=== PATIENT | male | born 1935 | race Two or more races ===

== ENCOUNTER 2020-09-12 13:24 | Inpatient (IN) | payer MEDICARE, OTHER ==
[2020-09-12] MEDS ORDERED: Sodium Chloride 0.9% 10 ML Syringe FLUSH PRN ×2 (13:44→14:27)
--- NOTE | 2020-09-12 14:25 | EDM.PDOC ---
ED HPI GENERAL MEDICAL PROBLEM - General Chief Complaint: Respiratory Problem Stated Complaint: DIFFICULTY BREATHING Time Seen by Provider: 09/12/20 13:42 Source of Information: Reports: Patient, RN Notes Reviewed History Limitations: Reports: No Limitations - History of Present Illness INITIAL COMMENTS - FREE TEXT/NARRATIVE: Patient is an 84-year-old male who presents to the ER with his family members for the evaluation of his difficulty breathing. Patient states that this has been going on for roughly 1 month, but seems to have worsened over the last week. He recently flew up to see his son, from [place]. His shortness of breath seems to worsen, when it is hotter outside, or when it is raining. It seems to get better when it is cooler. He has been having issues where he is coughing up some thick sputum, that is whitish in color. He notes that he did have COVID-19 4 to 5 months ago. He has not had any chest pain, nausea/vomiting, fevers or chills. O2 sats when he arrived here were 83% on room air, nursing staff did put him on oxygen, and he did improve to 95% on 5 L nasal cannula. Patient seems to be short of breath at rest, and it does worsen quite a bit even when he walks short distances. Patient does not take any regular medications, and denies any past medical history. - Related Data Allergies Allergy/AdvReac Type Severity Reaction Status Date / Time No Known Allergies Allergy Verified 09/12/20 13:35 Home Meds: Home Meds . [No Known Home Meds] 09/12/20 [History] Past Medical History Respiratory History: Reports: SOB - Infectious Disease History Infectious Disease History: Reports: Novel Coronavirus (05/02 or 06/02) - Past Surgical History Musculoskeletal Surgical History: Reports: Arthroscopic Knee, Other (See Below) Other Musculoskeletal Surgeries/Procedures:: Foot, knee and hip surgeries Social & Family History - Tobacco Use Tobacco Use Status *Q: Never Tobacco User - Caffeine Use Caffeine Use: Reports: None - Recreational Drug Use Recreational Drug Use: No ED ROS GENERAL - Review of Systems Review Of Systems: Comprehensive ROS is negative, except as noted in HPI. ED EXAM, GENERAL - Physical Exam Exam: See Below Exam Limited By: No Limitations General Appearance: Alert, WD/WN, No Apparent Distress Respiratory/Chest: No Respiratory Distress, Lungs Clear, Normal Breath Sounds, No Accessory Muscle Use, Chest Non-Tender Cardiovascular: Normal Peripheral Pulses, Regular Rate, Rhythm, No Edema Peripheral Pulses: 2+: Radial (L), Radial (R) GI/Abdominal: Normal Bowel Sounds, Soft, Non-Tender, No Distention, No Mass Extremities: Normal Inspection, Normal Capillary Refill Neurological: Alert, Oriented, Normal Cognition, No Motor/Sensory Deficits Psychiatric: Normal Affect, Normal Mood Skin Exam: Warm, Dry, Intact, Normal Color, No Rash #1 Interpretation EKG Date: 09/12/20 Time: 13:33 Rhythm: NSR Rate (Beats/Min): 84 [place]: Normal P-Wave: Present QRS: Normal ST-T: Normal QT: Normal Comparison: NA - No Prior EKG EKG Interpretation Comments: No obvious ischemia or acute ST changes noted, reviewed by myself and Dr. Ng. Course - Vital Signs Last Recorded V/S: Last Vital Signs Temp 97.1 F 09/12/20 13:33 Pulse 85 09/12/20 13:33 Resp 24 H 09/12/20 13:33 BP 137/80 09/12/20 13:33 Pulse Ox 95 09/12/20 14:27 - Orders/Labs/Meds Orders: Active Orders 24 hr Category Date Time Status EKG Documentation Completion [RC] STAT Care 09/12/20 13:42 Ordered Oxygen Therapy, ED [RC] ASDIRECTED Care 09/12/20 14:19 Ordered Peripheral IV Care [RC] . DIRECTED Care 09/12/20 13:44 Ordered REFLEX LACTIC ACID YES OR NO [CHEM] Routine Lab 09/12/20 14:26 Received Sodium Chloride 0.9% [Normal Saline] 1,000 ml Med 09/12/20 14:28 Ordered IV ONETIME Sodium Chloride 0.9% [Normal Saline] 100 ml Med 09/12/20 14:30 Active IV ASDIRECTED Sodium Chloride 0.9% [Saline Flush] Med 09/12/20 13:44 Ordered 10 ml FLUSH ASDIRECTED PRN Sodium Chloride 0.9% [Saline Flush] Med 09/12/20 14:27 Active 10 ml FLUSH ONETIME PRN Peripheral IV Insertion Adult [OM.PC] Routine Oth 09/12/20 13:44 Ordered EKG 12 Lead [EK] Stat Ther 09/12/20 13:33 Ordered Medication Orders Sodium Chloride (Normal Saline) 100 mls @ 75 mls/hr IV ASDIRECTED HERMILA Last Admin: 09/12/20 14:37 Dose: 75 mls/hr Documented by: NUNU Sodium Chloride (Normal Saline) 1,000 mls @ 500 mls/hr IV ONETIME ONE Stop: 09/12/20 16:27 Last Admin: 09/12/20 14:45 Dose: 500 mls/hr Documented by: LUIGI Sodium Chloride (Sodium Chloride 0.9% 10 Ml Syringe) 10 ml FLUSH ASDIRECTED PRN PRN Reason: Keep Vein Open Last Admin: 09/12/20 13:50 Dose: 10 ml Documented by: KENYON Sodium Chloride (Sodium Chloride 0.9% 10 Ml Syringe) 10 ml FLUSH ONETIME PRN PRN Reason: IV FLUSH Last Admin: 09/12/20 14:37 Dose: 10 ml Documented by: NUNU Labs: Laboratory Tests 09/12/20 09/12/20 09/12/20 Range/Units 13:35 13:35 13:35 WBC 8.14 (4.23-9.07) K/mm3 RBC 5.23 (4.63-6.08) M/mm3 Hgb 15.3 (13.7-17.5) gm/dl Hct 46.9 (40.1-51.0) % MCV 89.7 (79.0-92.2) fl MCH 29.3 (25.7-32.2) pg MCHC 32.6 (32.2-35.5) g/dl RDW Std Deviation 49.7 H (35.1-43.9) fL Plt Count 340 H (163-337) K/mm3 MPV 10.6 (9.4-12.3) fl Neutrophils % (Manual) 53 (40-60) % Band Neutrophils % 0 (0-10) % Lymphocytes % (Manual) 25 (20-40) % Atypical Lymphs % 0 % Monocytes % (Manual) 10 (2-10) % Eosinophils % (Manual) 12 H (0.8-7.0) % Basophils % (Manual) 0 L (0.2-1.2) Platelet Estimate Adequate RBC Morph Comment Normal PT 11.4 (9.7-12.0) SECONDS INR 1.07 APTT 24.1 (21.7-31.4) SECONDS D-Dimer, Quantitative (0.19-0.50) mg/L Puncture Site ABG pH (7.35-7.45) ABG pCO2 (35.0-45.0) mmHg ABG pO2 (80.0-100.0) mmHg ABG HCO3 (22.0-26.0) meq/L ABG O2 Saturation (96.0-97.0) % ABG Base Excess (-2-2.0) Hernán Test A-a Gradient mmHg O2 Delivery Device FiO2 (21.00-100.00) % Sodium (136-145) mEq/L Potassium (3.5-5.1) mEq/L Chloride (98-107) mEq/L Carbon Dioxide (21-32) mEq/L Anion Gap (5-15) BUN (7-18) mg/dL Creatinine (0.7-1.3) mg/dL Est Cr Clr Drug Dosing mL/min Estimated GFR (MDRD) (>60) mL/min BUN/Creatinine Ratio (14-18) Glucose (70-99) mg/dL Lactic Acid (0.4-2.0) mmol/L Calcium (8.5-10.1) mg/dL Magnesium (1.8-2.4) mg/dL Total Bilirubin (0.2-1.0) mg/dL AST (15-37) U/L ALT (16-63) U/L Alkaline Phosphatase (46-116) U/L Troponin I (0.00-0.056) ng/mL C-Reactive Protein <0.2 (<1.0) mg/dL NT-Pro-B Natriuret Pep (0-450) pg/mL Total Protein (6.4-8.2) g/dl Albumin (3.4-5.0) g/dl Globulin gm/dL Albumin/Globulin Ratio (1-2) 09/12/20 09/12/20 09/12/20 Range/Units 13:35 13:35 13:35 WBC (4.23-9.07) K/mm3 RBC (4.63-6.08) M/mm3 Hgb (13.7-17.5) gm/dl Hct (40.1-51.0) % MCV (79.0-92.2) fl MCH (25.7-32.2) pg MCHC (32.2-35.5) g/dl RDW Std Deviation (35.1-43.9) fL Plt Count (163-337) K/mm3 MPV (9.4-12.3) fl Neutrophils % (Manual) (40-60) % Band Neutrophils % (0-10) % Lymphocytes % (Manual) (20-40) % Atypical Lymphs % % Monocytes % (Manual) (2-10) % Eosinophils % (Manual) (0.8-7.0) % Basophils % (Manual) (0.2-1.2) Platelet Estimate RBC Morph Comment PT (9.7-12.0) SECONDS INR APTT (21.7-31.4) SECONDS D-Dimer, Quantitative 1.23 H (0.19-0.50) mg/L Puncture Site ABG pH (7.35-7.45) ABG pCO2 (35.0-45.0) mmHg ABG pO2 (80.0-100.0) mmHg ABG HCO3 (22.0-26.0) meq/L ABG O2 Saturation (96.0-97.0) % ABG Base Excess (-2-2.0) Hernán Test A-a Gradient mmHg O2 Delivery Device FiO2 (21.00-100.00) % Sodium 143 (136-145) mEq/L Potassium 3.7 (3.5-5.1) mEq/L Chloride 106 (98-107) mEq/L Carbon Dioxide 29 (21-32) mEq/L Anion Gap 11.7 (5-15) BUN 25 H (7-18) mg/dL Creatinine 0.9 (0.7-1.3) mg/dL Est Cr Clr Drug Dosing 48.24 mL/min Estimated GFR (MDRD) > 60 (>60) mL/min BUN/Creatinine Ratio 27.8 H (14-18) Glucose 186 H (70-99) mg/dL Lactic Acid (0.4-2.0) mmol/L Calcium 9.4 (8.5-10.1) mg/dL Magnesium 1.9 (1.8-2.4) mg/dL Total Bilirubin 1.2 H (0.2-1.0) mg/dL AST 26 (15-37) U/L ALT 47 (16-63) U/L Alkaline Phosphatase 117 H (46-116) U/L Troponin I < 0.017 (0.00-0.056) ng/mL C-Reactive Protein (<1.0) mg/dL NT-Pro-B Natriuret Pep 149 (0-450) pg/mL Total Protein 7.0 (6.4-8.2) g/dl Albumin 4.0 (3.4-5.0) g/dl Globulin 3.0 gm/dL Albumin/Globulin Ratio 1.3 (1-2) 09/12/20 09/12/20 Range/Units 13:54 14:17 WBC (4.23-9.07) K/mm3 RBC (4.63-6.08) M/mm3 Hgb (13.7-17.5) gm/dl Hct (40.1-51.0) % MCV (79.0-92.2) fl MCH (25.7-32.2) pg MCHC (32.2-35.5) g/dl RDW Std Deviation (35.1-43.9) fL Plt Count (163-337) K/mm3 MPV (9.4-12.3) fl Neutrophils % (Manual) (40-60) % Band Neutrophils % (0-10) % Lymphocytes % (Manual) (20-40) % Atypical Lymphs % % Monocytes % (Manual) (2-10) % Eosinophils % (Manual) (0.8-7.0) % Basophils % (Manual) (0.2-1.2) Platelet Estimate RBC Morph Comment PT (9.7-12.0) SECONDS INR APTT (21.7-31.4) SECONDS D-Dimer, Quantitative (0.19-0.50) mg/L Puncture Site Lt radial ABG pH 7.40 (7.35-7.45) ABG pCO2 41.3 (35.0-45.0) mmHg ABG pO2 49.0 L (80.0-100.0) mmHg ABG HCO3 25.2 (22.0-26.0) meq/L ABG O2 Saturation 86.5 L (96.0-97.0) % ABG Base Excess 0.8 (-2-2.0) Hernán Test Positive A-a Gradient 49 mmHg O2 Delivery Device Room air FiO2 21.00 (21.00-100.00) % Sodium (136-145) mEq/L Potassium (3.5-5.1) mEq/L Chloride (98-107) mEq/L Carbon Dioxide (21-32) mEq/L Anion Gap (5-15) BUN (7-18) mg/dL Creatinine (0.7-1.3) mg/dL Est Cr Clr Drug Dosing mL/min Estimated GFR (MDRD) (>60) mL/min BUN/Creatinine Ratio (14-18) Glucose (70-99) mg/dL Lactic Acid 2.7 H* (0.4-2.0) mmol/L Calcium (8.5-10.1) mg/dL Magnesium (1.8-2.4) mg/dL Total Bilirubin (0.2-1.0) mg/dL AST (15-37) U/L ALT (16-63) U/L Alkaline Phosphatase (46-116) U/L Troponin I (0.00-0.056) ng/mL C-Reactive Protein (<1.0) mg/dL NT-Pro-B Natriuret Pep (0-450) pg/mL Total Protein (6.4-8.2) g/dl Albumin (3.4-5.0) g/dl Globulin gm/dL Albumin/Globulin Ratio (1-2) Meds: Medications Generic Name Dose Route Start Last Admin Trade Name Freq PRN Reason Stop Dose Admin Sodium Chloride 100 mls @ 75 mls/hr 09/12/20 14:30 09/12/20 14:37 Normal Saline IV 75 mls/hr ASDIRECTED HERMILA Administration Sodium Chloride 1,000 mls @ 500 mls/hr 09/12/20 14:28 09/12/20 14:45 Normal Saline IV 09/12/20 16:27 500 mls/hr ONETIME ONE Administration Sodium Chloride 10 ml 09/12/20 13:44 09/12/20 13:50 Sodium Chloride 0.9% 10 Ml Syringe FLUSH 10 ml ASDIRECTED PRN Administration Keep Vein Open Sodium Chloride 10 ml 09/12/20 14:27 09/12/20 14:37 Sodium Chloride 0.9% 10 Ml Syringe FLUSH 10 ml ONETIME PRN Administration IV FLUSH Discontinued Medications Generic Name Dose Route Start Last Admin Trade Name Freq PRN Reason Stop Dose Admin Iopamidol 100 ml 09/12/20 14:27 09/12/20 14:37 Iopamidol 755 Mg/Ml 100 Ml Bottle IVPUSH 09/12/20 14:28 100 ml ONETIME ONE Administration - Re-Assessments/Exams Free Text/Narrative Re-Assessment/Exam: 09/12/20 14:06 Patient presents to the ER for his shortness of breath. We will do labs, chest x-ray, EKG for initial evaluation. 09/12/20 14:27 EKG was done, and demonstrates sinus rhythm with no acute ST change or other abnormalities reviewed by myself or Dr. Ng. Basic labs have been performed, and everything is essentially normal, patient's D-dimer is elevated at 1.23, his PO2 is low at 49 done by ABG. pH is okay, CO2 is okay, so he is ventilating well just hypoxic. Lactic acid has resulted and is elevated at 2.7 as well troponin is undetectably low. I have ordered an angio CT of his chest for further evaluation of the elevated D-dimer and hypoxia. He will also get a bag of fluid due to the elevated lactic acid. 09/12/20 15:[address] demonstrated no sign of a PE, but there is diffuse emphysematous change seen throughout both lungs. There was a 7 mm nodule within the left lung base consider follow-up with a noncontrast chest CT study in about a year to further evaluate for stability. As it stands it does appear he is suffering from undiagnosed COPD with an exacerbation. Have ordered 125 mg IV Solu-Medrol, and a DuoNeb for initial treatment I have been in contact with our hospitalist, Dr. Rosales, and he does graciously accept the patient for admission at this time. Departure - Departure Time of Disposition: 15:35 Disposition: Home, Self-Care 01 Condition: Good Clinical Impression: COPD exacerbation, Hypoxia - Discharge Information Referrals: PCP,Not In Area [Primary Care Provider] - Forms: ED Department Discharge Sepsis Event Note (ED) - Evaluation Sepsis Screening Result: No Definite Risk - Focused Exam Vital Signs: Vital Signs Temp Pulse Resp BP Pulse Ox Pulse Ox 09/12/20 14:27 95 09/12/20 13:33 97.1 F 85 24 H 137/80 83 L - My Orders Last 24 Hours: My Active Orders 09/12/20 13:33 EKG 12 Lead [EK] Stat 09/12/20 13:42 EKG Documentation Completion [RC] STAT 09/12/20 13:44 Peripheral IV Care [RC] . DIRECTED Sodium Chloride 0.9% [Saline Flush] 10 ml FLUSH ASDIRECTED PRN Peripheral IV Insertion Adult [OM.PC] Routine 09/12/20 14:19 Oxygen Therapy, ED [RC] ASDIRECTED 09/12/20 14:26 REFLEX LACTIC ACID YES OR NO [CHEM] Routine 09/12/20 14:27 Sodium Chloride 0.9% [Saline Flush] 10 ml FLUSH ONETIME PRN 09/12/20 14:28 Sodium Chloride 0.9% [Normal Saline] 1,000 ml IV ONETIME 09/12/20 14:30 Sodium Chloride 0.9% [Normal Saline] 100 ml IV ASDIRECTED - Assessment/Plan Last 24 Hours: My Active Orders 09/12/20 13:33 EKG 12 Lead [EK] Stat 09/12/20 13:42 EKG Documentation Completion [RC] STAT 09/12/20 13:44 Peripheral IV Care [RC] . DIRECTED Sodium Chloride 0.9% [Saline Flush] 10 ml FLUSH ASDIRECTED PRN Peripheral IV Insertion Adult [OM.PC] Routine 09/12/20 14:19 Oxygen Therapy, ED [RC] ASDIRECTED 09/12/20 14:26 REFLEX LACTIC ACID YES OR NO [CHEM] Routine 09/12/20 14:27 Sodium Chloride 0.9% [Saline Flush] 10 ml FLUSH ONETIME PRN 09/12/20 14:28 Sodium Chloride 0.9% [Normal Saline] 1,000 ml IV ONETIME 09/12/20 14:30 Sodium Chloride 0.9% [Normal Saline] 100 ml IV ASDIRECTED
[2020-09-12] MEDS ORDERED: Iopamidol 755 Mg/ML 100 ML Bottle IVPUSH ONE (14:27)
[2020-09-12] MEDS ORDERED: Sodium Chloride 0.9% 1,000 ML IV ONE (14:28)
[2020-09-12] MEDS ORDERED: Sodium Chloride 0.9% 100 ML IV SCH (14:30)
--- NOTE | 2020-09-12 15:00 | CT ---
CT chest Technique: Multiple axial sections through the chest were obtained. Intravenous contrast was utilized. Study has been performed as a pulmonary angiogram protocol and intravenous contrast was therefore utilized. Findings: Pulmonary arteries are well opacified. No filling defects are seen to indicate pulmonary embolism. Thoracic aorta shows atherosclerotic change without aneurysm. Mediastinum and hilar regions show no adenopathy. No pericardial thickening is seen. Visualized upper abdominal structures show multiple gallstones. Diffuse emphysematous changes are seen throughout both lungs. Slight parenchymal scarring is felt to be present within the left lung base. Small nodule is noted within the left lung base measuring 7 mm. Bone window settings were reviewed which show no acute osseous abnormality. Degenerative change is noted within the spine. Impression: 1. No findings of pulmonary embolism. 2. Emphysematous change. 3. 7 mm nodule within the left lung base. Consider follow-up noncontrast chest CT study in one year to further evaluate for stability. 4. Other findings believed to be incidental as noted above. Diagnostic code #9
--- NOTE | 2020-09-12 15:08 | CR ---
Chest: 2 views of the chest were obtained. Comparison: Prior chest CT study performed on the same day. Small nodule is noted with the left lung base. Scattered areas of scarring are seen within the left base. Lungs are hyperinflated compatible with emphysematous change. Heart size is normal. Tortuous thoracic aorta is seen. Bony structures appear within normal limits for the patient's age. Impression: 1. Small nodule within left lung base. As mentioned on chest CT, follow-up noncontrast chest CT could be considered in one year. 2. Mild parenchymal scarring within the left base. 3. Emphysematous change. Diagnostic code #3
[2020-09-12] MEDS ORDERED: methylPREDNISolone Sodium Succinate 125 MG/2 ML SDV IVPUSH ONE (15:21)
[2020-09-12] MEDS ORDERED: Albuterol/Ipratropium 3.0-0.5 MG/3 ML Neb Soln NEB ONE (15:21)
[2020-09-12] MEDS ORDERED: Ondansetron 4 MG Tab.DIS PO PRN (15:48)
[2020-09-12] MEDS ORDERED: Ondansetron 4 MG/2 ML SDV IV PRN (15:48)
[2020-09-12] MEDS ORDERED: Albuterol/Ipratropium 3.0-0.5 MG/3 ML Neb Soln NEB PRN (15:48)
[2020-09-12] MEDS ORDERED: Docusate Sodium 100 MG Cap PO PRN (15:48)
[2020-09-12] MEDS ORDERED: Acetaminophen 325 MG Tab PO PRN (15:48)
--- NOTE | 2020-09-12 16:35 | PCM.HP.2 ---
H&P History of Present Illness - General Date of Service: 09/12/20 Admit Problem/Dx: Admission Diagnosis/Problem Admission Diagnosis/Problem COPD, Severe chronic obstructive pulmonary disease Source of Information: Patient, Family History Limitations: Reports: No Limitations - History of Present Illness Initial Comments - Free Text/Narative: Patient is an 84-year-old male with a past medical history only notable for significant tobacco abuse, who claims no other particular history and not seeing a primary care physician in many years, who presents to the [facility] emergency department with a chief complaint of shortness of breath. He is accompanied by his son Dannie Vega. Patient states that he was in his usual state of health up until the past month or so. He has noted increasing/progressive shortness of breath which is exacer bated by any activity mild or strenuous. He occasionally will hear himself wheezing. This is only with exhalation. He denies any recent sick contacts. He did have an acute Covid pneumonitis earlier in 2020 without complication. Denies any sputum change. He does have a chronic cough. Sputum is white and occasional. Denies any chest pain, pleurisy or chest pressure. He has been a lifelong smoker for the past 74 years. He used to smoke 2 packs of cigarettes per day and claims that he quit 6 months ago. He presented to the emergency department for evaluation at the request of his son, because it is quite noticeable that he is struggling to breathe even at rest while watching the television. Patient was hypoxic upon presentation to the emergency department requiring supplemental oxygen. D-dimer was high. Chest x-ray negative for cute pathology other than chronic emphysematous changes. CT angiogram to rule out PE was, indeed, negative for pulmonary embolism. No other acute pathology noted. A pulmonary nodule was also seen. Patient was given corticosteroids and breathing treatments before being referred to the inpatient service. A 14 point review of systems was reviewed with the patient and only pertinent for the above information. CODE STATUS: DNR, but would want to be intubated for respiratory failure. - Related Data Allergies/Adverse Reactions: Allergies Allergy/AdvReac Type Severity Reaction Status Date / Time No Known Allergies Allergy Verified 09/12/20 13:35 Home Medications: Home Meds . [No Known Home Meds] 09/12/20 [History] Past Medical History Respiratory History: Reports: SOB - Infectious Disease History Infectious Disease History: Reports: Novel Coronavirus (05/02 or 06/02) - Past Surgical History Musculoskeletal Surgical History: Reports: Arthroscopic Knee, Other (See Below) Other Musculoskeletal Surgeries/Procedures:: Foot, knee and hip surgeries Social & Family History - Tobacco Use Tobacco Use Status *Q: Never Tobacco User - Caffeine Use Caffeine Use: Reports: None - Recreational Drug Use Recreational Drug Use: No H&P Review of Systems - Review of Systems: Review Of Systems: Comprehensive ROS is negative, except as noted in HPI. Exam - Exam Exam: See Below - Vital Signs Vital Signs: Last Vital Signs Temp 97.1 F 09/12/20 13:33 Pulse 85 09/12/20 13:33 Resp 24 H 09/12/20 13:33 BP 137/80 09/12/20 13:33 Pulse Ox 95 09/12/20 15:49 Weight: 120 lb 14.4 oz - Exam Quality Assessment: Supplemental Oxygen General: Alert, Oriented, Cooperative HEENT: Conjunctiva Clear, Nares Patent Neck: Supple Lungs: Rhonchi, Wheezing Cardiovascular: Regular Rate, Regular Rhythm, Normal S1, Normal S2 GI/Abdominal Exam: Normal Bowel Sounds, Soft, Non-Tender Extremities: Normal Inspection Skin: Warm, Dry, Intact Neuro Extensive - Mental Status: Normal Mood/Affect Neuro Extensive - Motor, Sensory, Reflexes: CN II-XII Intact Psychiatric: Normal Mood - Patient Data Lab Results Last 24 hrs: Laboratory Results - last 24 hr 09/12/20 09/12/20 09/12/20 Range/Units 13:35 13:35 13:35 WBC 8.14 (4.23-9.07) K/mm3 RBC 5.23 (4.63-6.08) M/mm3 Hgb 15.3 (13.7-17.5) gm/dl Hct 46.9 (40.1-51.0) % MCV 89.7 (79.0-92.2) fl MCH 29.3 (25.7-32.2) pg MCHC 32.6 (32.2-35.5) g/dl RDW Std Deviation 49.7 H (35.1-43.9) fL Plt Count 340 H (163-337) K/mm3 MPV 10.6 (9.4-12.3) fl Neutrophils % (Manual) 53 (40-60) % Band Neutrophils % 0 (0-10) % Lymphocytes % (Manual) 25 (20-40) % Atypical Lymphs % 0 % Monocytes % (Manual) 10 (2-10) % Eosinophils % (Manual) 12 H (0.8-7.0) % Basophils % (Manual) 0 L (0.2-1.2) Platelet Estimate Adequate RBC Morph Comment Normal PT 11.4 (9.7-12.0) SECONDS INR 1.07 APTT 24.1 (21.7-31.4) SECONDS D-Dimer, Quantitative (0.19-0.50) mg/L Puncture Site ABG pH (7.35-7.45) ABG pCO2 (35.0-45.0) mmHg ABG pO2 (80.0-100.0) mmHg ABG HCO3 (22.0-26.0) meq/L ABG O2 Saturation (96.0-97.0) % ABG Base Excess (-2-2.0) Hernán Test A-a Gradient mmHg O2 Delivery Device FiO2 (21.00-100.00) % Sodium (136-145) mEq/L Potassium (3.5-5.1) mEq/L Chloride (98-107) mEq/L Carbon Dioxide (21-32) mEq/L Anion Gap (5-15) BUN (7-18) mg/dL Creatinine (0.7-1.3) mg/dL Est Cr Clr Drug Dosing mL/min Estimated GFR (MDRD) (>60) mL/min BUN/Creatinine Ratio (14-18) Glucose (70-99) mg/dL Lactic Acid (0.4-2.0) mmol/L Calcium (8.5-10.1) mg/dL Magnesium (1.8-2.4) mg/dL Total Bilirubin (0.2-1.0) mg/dL AST (15-37) U/L ALT (16-63) U/L Alkaline Phosphatase (46-116) U/L Troponin I (0.00-0.056) ng/mL C-Reactive Protein <0.2 (<1.0) mg/dL NT-Pro-B Natriuret Pep (0-450) pg/mL Total Protein (6.4-8.2) g/dl Albumin (3.4-5.0) g/dl Globulin gm/dL Albumin/Globulin Ratio (1-2) 09/12/20 09/12/20 09/12/20 Range/Units 13:35 13:35 13:35 WBC (4.23-9.07) K/mm3 RBC (4.63-6.08) M/mm3 Hgb (13.7-17.5) gm/dl Hct (40.1-51.0) % MCV (79.0-92.2) fl MCH (25.7-32.2) pg MCHC (32.2-35.5) g/dl RDW Std Deviation (35.1-43.9) fL Plt Count (163-337) K/mm3 MPV (9.4-12.3) fl Neutrophils % (Manual) (40-60) % Band Neutrophils % (0-10) % Lymphocytes % (Manual) (20-40) % Atypical Lymphs % % Monocytes % (Manual) (2-10) % Eosinophils % (Manual) (0.8-7.0) % Basophils % (Manual) (0.2-1.2) Platelet Estimate RBC Morph Comment PT (9.7-12.0) SECONDS INR APTT (21.7-31.4) SECONDS D-Dimer, Quantitative 1.23 H (0.19-0.50) mg/L Puncture Site ABG pH (7.35-7.45) ABG pCO2 (35.0-45.0) mmHg ABG pO2 (80.0-100.0) mmHg ABG HCO3 (22.0-26.0) meq/L ABG O2 Saturation (96.0-97.0) % ABG Base Excess (-2-2.0) Hernán Test A-a Gradient mmHg O2 Delivery Device FiO2 (21.00-100.00) % Sodium 143 (136-145) mEq/L Potassium 3.7 (3.5-5.1) mEq/L Chloride 106 (98-107) mEq/L Carbon Dioxide 29 (21-32) mEq/L Anion Gap 11.7 (5-15) BUN 25 H (7-18) mg/dL Creatinine 0.9 (0.7-1.3) mg/dL Est Cr Clr Drug Dosing 48.24 mL/min Estimated GFR (MDRD) > 60 (>60) mL/min BUN/Creatinine Ratio 27.8 H (14-18) Glucose 186 H (70-99) mg/dL Lactic Acid (0.4-2.0) mmol/L Calcium 9.4 (8.5-10.1) mg/dL Magnesium 1.9 (1.8-2.4) mg/dL Total Bilirubin 1.2 H (0.2-1.0) mg/dL AST 26 (15-37) U/L ALT 47 (16-63) U/L Alkaline Phosphatase 117 H (46-116) U/L Troponin I < 0.017 (0.00-0.056) ng/mL C-Reactive Protein (<1.0) mg/dL NT-Pro-B Natriuret Pep 149 (0-450) pg/mL Total Protein 7.0 (6.4-8.2) g/dl Albumin 4.0 (3.4-5.0) g/dl Globulin 3.0 gm/dL Albumin/Globulin Ratio 1.3 (1-2) 09/12/20 09/12/20 Range/Units 13:54 14:17 WBC (4.23-9.07) K/mm3 RBC (4.63-6.08) M/mm3 Hgb (13.7-17.5) gm/dl Hct (40.1-51.0) % MCV (79.0-92.2) fl MCH (25.7-32.2) pg MCHC (32.2-35.5) g/dl RDW Std Deviation (35.1-43.9) fL Plt Count (163-337) K/mm3 MPV (9.4-12.3) fl Neutrophils % (Manual) (40-60) % Band Neutrophils % (0-10) % Lymphocytes % (Manual) (20-40) % Atypical Lymphs % % Monocytes % (Manual) (2-10) % Eosinophils % (Manual) (0.8-7.0) % Basophils % (Manual) (0.2-1.2) Platelet Estimate RBC Morph Comment PT (9.7-12.0) SECONDS INR APTT (21.7-31.4) SECONDS D-Dimer, Quantitative (0.19-0.50) mg/L Puncture Site Lt radial ABG pH 7.40 (7.35-7.45) ABG pCO2 41.3 (35.0-45.0) mmHg ABG pO2 49.0 L (80.0-100.0) mmHg ABG HCO3 25.2 (22.0-26.0) meq/L ABG O2 Saturation 86.5 L (96.0-97.0) % ABG Base Excess 0.8 (-2-2.0) Hernán Test Positive A-a Gradient 49 mmHg O2 Delivery Device Room air FiO2 21.00 (21.00-100.00) % Sodium (136-145) mEq/L Potassium (3.5-5.1) mEq/L Chloride (98-107) mEq/L Carbon Dioxide (21-32) mEq/L Anion Gap (5-15) BUN (7-18) mg/dL Creatinine (0.7-1.3) mg/dL Est Cr Clr Drug Dosing mL/min Estimated GFR (MDRD) (>60) mL/min BUN/Creatinine Ratio (14-18) Glucose (70-99) mg/dL Lactic Acid 2.7 H* (0.4-2.0) mmol/L Calcium (8.5-10.1) mg/dL Magnesium (1.8-2.4) mg/dL Total Bilirubin (0.2-1.0) mg/dL AST (15-37) U/L ALT (16-63) U/L Alkaline Phosphatase (46-116) U/L Troponin I (0.00-0.056) ng/mL C-Reactive Protein (<1.0) mg/dL NT-Pro-B Natriuret Pep (0-450) pg/mL Total Protein (6.4-8.2) g/dl Albumin (3.4-5.0) g/dl Globulin gm/dL Albumin/Globulin Ratio (1-2) Result Diagrams: 09/12/20 13:35 09/12/20 13:35 Sepsis Event Note - Evaluation Sepsis Screening Result: No Definite Risk - Focused Exam Vital Signs: Vital Signs Temp Pulse Resp BP Pulse Ox Pulse Ox 09/12/20 15:49 95 09/12/20 14:27 95 09/12/20 13:33 97.1 F 85 24 H 137/80 83 L - Problem List (1) COPD exacerbation SNOMED Code(s): 970170676 ICD Code: J44.1 - CHRONIC OBSTRUCTIVE PULMONARY DISEASE W (ACUTE) EXACERBATION Status: Acute Current Visit: Yes Problem List Initiated/Reviewed/Updated: Yes Orders Last 24hrs: Active Orders 24 hr Category Date Time Status Patient Status [ADT] Routine ADT 09/12/20 15:49 Active Antiembolic Devices [RC] PER UNIT ROUTINE Care 09/12/20 15:51 Active EKG Documentation Completion [RC] STAT Care 09/12/20 13:42 Active Oxygen Therapy [RC] PRN Care 09/12/20 15:49 Active Oxygen Therapy, ED [RC] ASDIRECTED Care 09/12/20 14:19 Active Peripheral IV Care [RC] . DIRECTED Care 09/12/20 13:44 Active Pulse Oximetry [RC] CONTINUOUS Care 09/12/20 15:50 Active RT Aerosol Therapy [RC] ASDIRECTED Care 09/12/20 15:21 Active RT Aerosol Therapy [RC] ASDIRECTED Care 09/12/20 15:51 Active RT Aerosol Therapy [RC] ASDIRECTED Care 09/12/20 15:55 Active Up With Assistance [RC] ASDIRECTED Care 09/12/20 15:48 Active VTE/DVT Education [RC] PER UNIT ROUTINE Care 09/12/20 15:49 Active Vital Signs [RC] Q4H Care 09/12/20 15:49 Active Respiratory Care Assess and Treatment [CONS] Routine Cons 09/12/20 15:52 Active Regular Diet [DIET] Diet 09/12/20 Dinner Active BASIC METABOLIC PANEL,BMP [CHEM] DAILY Lab 09/13/20 16:00 Ordered BASIC METABOLIC PANEL,BMP [CHEM] DAILY Lab 09/14/20 16:00 Ordered BASIC METABOLIC PANEL,BMP [CHEM] DAILY Lab 09/15/20 16:00 Ordered CBC WITH AUTO DIFF [HEME] DAILY Lab 09/13/20 16:00 Ordered CBC WITH AUTO DIFF [HEME] DAILY Lab 09/14/20 16:00 Ordered CBC WITH AUTO DIFF [HEME] DAILY Lab 09/15/20 16:00 Ordered COVID-19/FLU A+B [MOLEC] Stat Lab 09/12/20 15:21 Ordered LACTIC ACID [CHEM] Routine Lab 09/12/20 16:26 Ordered Acetaminophen [TylenoL] Med 09/12/20 15:48 Active 650 mg PO Q4H PRN Albuterol/Ipratropium [DuoNeb 3.0-0.5 MG/3 ML] Med 09/12/20 15:48 Active 3 ml NEB Q2H PRN Albuterol/Ipratropium [DuoNeb 3.0-0.5 MG/3 ML] Med 09/12/20 18:00 Active 3 ml NEB Q4HRRT Docusate Sodium [Colace] Med 09/12/20 15:48 Active 100 mg PO BID PRN Heparin Sodium Med 09/12/20 16:00 Active 5,000 units SUBCUT Q8H Ondansetron [Zofran ODT] Med 09/12/20 15:48 Active 4 mg PO Q4H PRN Ondansetron [Zofran] Med 09/12/20 15:48 Active 4 mg IV Q4H PRN Sodium Chloride 0.9% [Normal Saline] 100 ml Med 09/12/20 14:30 Active IV ASDIRECTED Sodium Chloride 0.9% [Saline Flush] Med 09/12/20 13:44 Active 10 ml FLUSH ASDIRECTED PRN Sodium Chloride 0.9% [Saline Flush] Med 09/12/20 14:27 Active 10 ml FLUSH ONETIME PRN methylPREDNISolone Sod Succ [Solu-MEDROL] Med 09/12/20 16:00 Active 40 mg IVPUSH Q8H Peripheral IV Insertion Adult [OM.PC] Routine Oth 09/12/20 13:44 Ordered Sequential Compression Device [OM.PC] Per Unit Routine Oth 09/12/20 15:51 Ordered Resuscitation Status Routine Resus Stat 09/12/20 15:48 Ordered EKG 12 Lead [EK] Stat Ther 09/12/20 13:33 Stop Req Medication Orders Acetaminophen (Acetaminophen 325 Mg Tab) 650 mg PO Q4H PRN PRN Reason: Pain (Mild 1-3)/fever Albuterol/Ipratropium (Albuterol/Ipratropium 3.0-0.5 Mg/3 Ml Neb Soln) 3 ml NEB Q2H PRN PRN Reason: Shortness Of Breath/wheezing Albuterol/Ipratropium (Albuterol/Ipratropium 3.0-0.5 Mg/3 Ml Neb Soln) 3 ml NEB Q4HRRT HERMILA Docusate Sodium (Docusate Sodium 100 Mg Cap) 100 mg PO BID PRN PRN Reason: Constipation Heparin Sodium (Porcine) (Heparin Sodium 5,000 Units/Ml Vial) 5,000 units SUBCUT Q8H [facility] Sodium Chloride (Normal Saline) 100 mls @ 75 mls/hr IV ASDIRECTED HERMILA Last Admin: 09/12/20 14:37 Dose: 75 mls/hr Documented by: NUNU Methylprednisolone Sodium Succinate (Methylprednisolone Sodium Succinate 40 Mg/1 Ml Sdv) 40 mg IVPUSH Q8H HERMILA Ondansetron HCl (Ondansetron 4 Mg Tab.Dis) 4 mg PO Q4H PRN PRN Reason: nausea, able to take PO Ondansetron HCl (Ondansetron 4 Mg/2 Ml Sdv) 4 mg IV Q4H PRN PRN Reason: Nausea/Vomiting Sodium Chloride (Sodium Chloride 0.9% 10 Ml Syringe) 10 ml FLUSH ASDIRECTED PRN PRN Reason: Keep Vein Open Last Admin: 09/12/20 13:50 Dose: 10 ml Documented by: KENYON Sodium Chloride (Sodium Chloride 0.9% 10 Ml Syringe) 10 ml FLUSH ONETIME PRN PRN Reason: IV FLUSH Last Admin: 09/12/20 14:37 Dose: 10 ml Documented by: NUNU Assessment/Plan Comment:: 84-year-old male with a history of known significant tobacco abuse over the past 75 years presents to the emergency department with progressive shortness of breath over 1 month. Found to be in acute hypoxic respiratory failure secondary to acute COPD exacerbation. 1. Acute hypoxic respiratory failure secondary to acute COPD exacerbation. Admit to the hospitalist service to the general medical floor for ongoing treatment. Respiratory therapy consult. Scheduled and as needed duo nebs. Continue Solu-Medrol 40 mg every 8 with intent to begin tapering tomorrow based upon examination and respiratory status. Incentive spirometry encouraged. Daily ambulation saturation trials with PT/OT. Smoking cessation education. Will require both short acting and long-acting maintenance therapies at time of discharge. Pulmonal oxygen as necessary with weaning as tolerated. 2. Tobacco abuse. Nicotine replacement. Tobacco cessation education. CODE STATUS: DNR but would want intubation for acute respiratory failure only. DVT prophylaxis with heparin. - Mortality Measure Prognosis:: Good
[2020-09-12 17:08] LABS: CORONAVIRUS COVID-19 NAA NEGATIVE (NEGATIVE)
[2020-09-12] MEDS: Albuterol/Ipratropium 3.0-0.5 MG/3 ML Neb Soln NEB SCH ×2 (17:45→21:20)
[2020-09-12] MEDS: methylPREDNISolone Sodium Succinate 40 MG/1 ML SDV IVPUSH SCH ×2 (18:25→23:52)
[2020-09-12] MEDS: Heparin Sodium 5,000 Units/ML Vial SUBCUT SCH ×2 (18:25→23:52)
[2020-09-13] MEDS: Albuterol/Ipratropium 3.0-0.5 MG/3 ML Neb Soln NEB SCH ×6 (01:38→21:19)
--- NOTE | 2020-09-13 07:40 | PCM.PN ---
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 No new nursing concerns. Patient only requiring 2 L overnight. Patient does not endorse any specific complaints and he states he feels 100% better. Still hears self wheezing. Coughing less. No sputum production. No fever. - Review of Systems General: Reports: No Symptoms Pulmonary: Reports: Cough, Wheezing. Denies: Shortness of Breath, Sputum, Hemoptysis Cardiovascular: Reports: No Symptoms Gastrointestinal: Reports: No Symptoms - Patient Data Vitals - Most Recent: Last Vital Signs Temp 97.9 F 09/13/20 05:37 Pulse 65 09/13/20 05:37 Resp 20 09/13/20 05:37 BP 126/84 09/13/20 05:37 Pulse Ox 95 09/13/20 06:02 Weight - Most Recent: 122 lb 1.6 oz I&O - Last 24 Hours: Intake & Output 09/12/20 09/13/20 09/13/20 22:59 06:59 14:59 Intake Total 200 Balance 200 Lab Results Last 24 Hours: Laboratory Results - last 24 hr 09/12/20 09/12/20 09/12/20 Range/Units 13:35 13:35 13:35 WBC 8.14 (4.23-9.07) K/mm3 RBC 5.23 (4.63-6.08) M/mm3 Hgb 15.3 (13.7-17.5) gm/dl Hct 46.9 (40.1-51.0) % MCV 89.7 (79.0-92.2) fl MCH 29.3 (25.7-32.2) pg MCHC 32.6 (32.2-35.5) g/dl RDW Std Deviation 49.7 H (35.1-43.9) fL Plt Count 340 H (163-337) K/mm3 MPV 10.6 (9.4-12.3) fl Neutrophils % (Manual) 53 (40-60) % Band Neutrophils % 0 (0-10) % Lymphocytes % (Manual) 25 (20-40) % Atypical Lymphs % 0 % Monocytes % (Manual) 10 (2-10) % Eosinophils % (Manual) 12 H (0.8-7.0) % Basophils % (Manual) 0 L (0.2-1.2) Platelet Estimate Adequate RBC Morph Comment Normal PT 11.4 (9.7-12.0) SECONDS INR 1.07 APTT 24.1 (21.7-31.4) SECONDS D-Dimer, Quantitative (0.19-0.50) mg/L Puncture Site ABG pH (7.35-7.45) ABG pCO2 (35.0-45.0) mmHg ABG pO2 (80.0-100.0) mmHg ABG HCO3 (22.0-26.0) meq/L ABG O2 Saturation (96.0-97.0) % ABG Base Excess (-2-2.0) Hernán Test A-a Gradient mmHg O2 Delivery Device FiO2 (21.00-100.00) % Sodium (136-145) mEq/L Potassium (3.5-5.1) mEq/L Chloride (98-107) mEq/L Carbon Dioxide (21-32) mEq/L Anion Gap (5-15) BUN (7-18) mg/dL Creatinine (0.7-1.3) mg/dL Est Cr Clr Drug Dosing mL/min Estimated GFR (MDRD) (>60) mL/min BUN/Creatinine Ratio (14-18) Glucose (70-99) mg/dL Lactic Acid (0.4-2.0) mmol/L Calcium (8.5-10.1) mg/dL Magnesium (1.8-2.4) mg/dL Total Bilirubin (0.2-1.0) mg/dL AST (15-37) U/L ALT (16-63) U/L Alkaline Phosphatase (46-116) U/L Troponin I (0.00-0.056) ng/mL C-Reactive Protein <0.2 (<1.0) mg/dL NT-Pro-B Natriuret Pep (0-450) pg/mL Total Protein (6.4-8.2) g/dl Albumin (3.4-5.0) g/dl Globulin gm/dL Albumin/Globulin Ratio (1-2) Influenza Type A RNA (NEGATIVE) Influenza Type B RNA (NEGATIVE) SARS-CoV-2 RNA (MITRA) (NEGATIVE) 0609/12/20 09/12/20 Range/Units 13:35 13:35 13:35 WBC (4.23-9.07) K/mm3 RBC (4.63-6.08) M/mm3 Hgb (13.7-17.5) gm/dl Hct (40.1-51.0) % MCV (79.0-92.2) fl MCH (25.7-32.2) pg MCHC (32.2-35.5) g/dl RDW Std Deviation (35.1-43.9) fL Plt Count (163-337) K/mm3 MPV (9.4-12.3) fl Neutrophils % (Manual) (40-60) % Band Neutrophils % (0-10) % Lymphocytes % (Manual) (20-40) % Atypical Lymphs % % Monocytes % (Manual) (2-10) % Eosinophils % (Manual) (0.8-7.0) % Basophils % (Manual) (0.2-1.2) Platelet Estimate RBC Morph Comment PT (9.7-12.0) SECONDS INR APTT (21.7-31.4) SECONDS D-Dimer, Quantitative 1.23 H (0.19-0.50) mg/L Puncture Site ABG pH (7.35-7.45) ABG pCO2 (35.0-45.0) mmHg ABG pO2 (80.0-100.0) mmHg ABG HCO3 (22.0-26.0) meq/L ABG O2 Saturation (96.0-97.0) % ABG Base Excess (-2-2.0) Hernán Test A-a Gradient mmHg O2 Delivery Device FiO2 (21.00-100.00) % Sodium 143 (136-145) mEq/L Potassium 3.7 (3.5-5.1) mEq/L Chloride 106 (98-107) mEq/L Carbon Dioxide 29 (21-32) mEq/L Anion Gap 11.7 (5-15) BUN 25 H (7-18) mg/dL Creatinine 0.9 (0.7-1.3) mg/dL Est Cr Clr Drug Dosing 48.24 mL/min Estimated GFR (MDRD) > 60 (>60) mL/min BUN/Creatinine Ratio 27.8 H (14-18) Glucose 186 H (70-99) mg/dL Lactic Acid (0.4-2.0) mmol/L Calcium 9.4 (8.5-10.1) mg/dL Magnesium 1.9 (1.8-2.4) mg/dL Total Bilirubin 1.2 H (0.2-1.0) mg/dL AST 26 (15-37) U/L ALT 47 (16-63) U/L Alkaline Phosphatase 117 H (46-116) U/L Troponin I < 0.017 (0.00-0.056) ng/mL C-Reactive Protein (<1.0) mg/dL NT-Pro-B Natriuret Pep 149 (0-450) pg/mL Total Protein 7.0 (6.4-8.2) g/dl Albumin 4.0 (3.4-5.0) g/dl Globulin 3.0 gm/dL Albumin/Globulin Ratio 1.3 (1-2) Influenza Type A RNA (NEGATIVE) Influenza Type B RNA (NEGATIVE) SARS-CoV-2 RNA (MITRA) (NEGATIVE) 09/12/20 09/12/20 09/12/20 Range/Units 13:54 14:17 16:27 WBC (4.23-9.07) K/mm3 RBC (4.63-6.08) M/mm3 Hgb (13.7-17.5) gm/dl Hct (40.1-51.0) % MCV (79.0-92.2) fl MCH (25.7-32.2) pg MCHC (32.2-35.5) g/dl RDW Std Deviation (35.1-43.9) fL Plt Count (163-337) K/mm3 MPV (9.4-12.3) fl Neutrophils % (Manual) (40-60) % Band Neutrophils % (0-10) % Lymphocytes % (Manual) (20-40) % Atypical Lymphs % % Monocytes % (Manual) (2-10) % Eosinophils % (Manual) (0.8-7.0) % Basophils % (Manual) (0.2-1.2) Platelet Estimate RBC Morph Comment PT (9.7-12.0) SECONDS INR APTT (21.7-31.4) SECONDS D-Dimer, Quantitative (0.19-0.50) mg/L Puncture Site Lt radial ABG pH 7.40 (7.35-7.45) ABG pCO2 41.3 (35.0-45.0) mmHg ABG pO2 49.0 L (80.0-100.0) mmHg ABG HCO3 25.2 (22.0-26.0) meq/L ABG O2 Saturation 86.5 L (96.0-97.0) % ABG Base Excess 0.8 (-2-2.0) Hernán Test Positive A-a Gradient 49 mmHg O2 Delivery Device Room air FiO2 21.00 (21.00-100.00) % Sodium (136-145) mEq/L Potassium (3.5-5.1) mEq/L Chloride (98-107) mEq/L Carbon Dioxide (21-32) mEq/L Anion Gap (5-15) BUN (7-18) mg/dL Creatinine (0.7-1.3) mg/dL Est Cr Clr Drug Dosing mL/min Estimated GFR (MDRD) (>60) mL/min BUN/Creatinine Ratio (14-18) Glucose (70-99) mg/dL Lactic Acid 2.7 H* (0.4-2.0) mmol/L Calcium (8.5-10.1) mg/dL Magnesium (1.8-2.4) mg/dL Total Bilirubin (0.2-1.0) mg/dL AST (15-37) U/L ALT (16-63) U/L Alkaline Phosphatase (46-116) U/L Troponin I (0.00-0.056) ng/mL C-Reactive Protein (<1.0) mg/dL NT-Pro-B Natriuret Pep (0-450) pg/mL Total Protein (6.4-8.2) g/dl Albumin (3.4-5.0) g/dl Globulin gm/dL Albumin/Globulin Ratio (1-2) Influenza Type A RNA Negative (NEGATIVE) Influenza Type B RNA Negative (NEGATIVE) SARS-CoV-2 RNA (MITRA) Negative (NEGATIVE) 09/12/20 Range/Units 16:59 WBC (4.23-9.07) K/mm3 RBC (4.63-6.08) M/mm3 Hgb (13.7-17.5) gm/dl Hct (40.1-51.0) % MCV (79.0-92.2) fl MCH (25.7-32.2) pg MCHC (32.2-35.5) g/dl RDW Std Deviation (35.1-43.9) fL Plt Count (163-337) K/mm3 MPV (9.4-12.3) fl Neutrophils % (Manual) (40-60) % Band Neutrophils % (0-10) % Lymphocytes % (Manual) (20-40) % Atypical Lymphs % % Monocytes % (Manual) (2-10) % Eosinophils % (Manual) (0.8-7.0) % Basophils % (Manual) (0.2-1.2) Platelet Estimate RBC Morph Comment PT (9.7-12.0) SECONDS INR APTT (21.7-31.4) SECONDS D-Dimer, Quantitative (0.19-0.50) mg/L Puncture Site ABG pH (7.35-7.45) ABG pCO2 (35.0-45.0) mmHg ABG pO2 (80.0-100.0) mmHg ABG HCO3 (22.0-26.0) meq/L ABG O2 Saturation (96.0-97.0) % ABG Base Excess (-2-2.0) Hernán Test A-a Gradient mmHg O2 Delivery Device FiO2 (21.00-100.00) % Sodium (136-145) mEq/L Potassium (3.5-5.1) mEq/L Chloride (98-107) mEq/L Carbon Dioxide (21-32) mEq/L Anion Gap (5-15) BUN (7-18) mg/dL Creatinine (0.7-1.3) mg/dL Est Cr Clr Drug Dosing mL/min Estimated GFR (MDRD) (>60) mL/min BUN/Creatinine Ratio (14-18) Glucose (70-99) mg/dL Lactic Acid 1.8 (0.4-2.0) mmol/L Calcium (8.5-10.1) mg/dL Magnesium (1.8-2.4) mg/dL Total Bilirubin (0.2-1.0) mg/dL AST (15-37) U/L ALT (16-63) U/L Alkaline Phosphatase (46-116) U/L Troponin I (0.00-0.056) ng/mL C-Reactive Protein (<1.0) mg/dL NT-Pro-B Natriuret Pep (0-450) pg/mL Total Protein (6.4-8.2) g/dl Albumin (3.4-5.0) g/dl Globulin gm/dL Albumin/Globulin Ratio (1-2) Influenza Type A RNA (NEGATIVE) Influenza Type B RNA (NEGATIVE) SARS-CoV-2 RNA (MITRA) (NEGATIVE) Med Orders - Current: Current Medications Acetaminophen (Acetaminophen 325 Mg Tab) 650 mg PO Q4H PRN PRN Reason: Pain (Mild 1-3)/fever Albuterol/Ipratropium (Albuterol/Ipratropium 3.0-0.5 Mg/3 Ml Neb Soln) 3 ml NEB Q2H PRN PRN Reason: Shortness Of Breath/wheezing Albuterol/Ipratropium (Albuterol/Ipratropium 3.0-0.5 Mg/3 Ml Neb Soln) 3 ml NEB Q4HRRT [facility] Last Admin: 09/13/20 06:01 Dose: 3 ml Documented by: Docusate Sodium (Docusate Sodium 100 Mg Cap) 100 mg PO BID PRN PRN Reason: Constipation Heparin Sodium (Porcine) (Heparin Sodium 5,000 Units/Ml Vial) 5,000 units SUBCUT Q8H [facility] Last Admin: 09/12/20 23:52 Dose: 5,000 units Documented by: Methylprednisolone Sodium Succinate (Methylprednisolone Sodium Succinate 40 Mg/1 Ml Sdv) 40 mg IVPUSH Q8H [facility] Last Admin: 09/12/20 23:52 Dose: 40 mg Documented by: Ondansetron HCl (Ondansetron 4 Mg Tab.Dis) 4 mg PO Q4H PRN PRN Reason: nausea, able to take PO Ondansetron HCl (Ondansetron 4 Mg/2 Ml Sdv) 4 mg IV Q4H PRN PRN Reason: Nausea/Vomiting Sodium Chloride (Sodium Chloride 0.9% 10 Ml Syringe) 10 ml FLUSH ASDIRECTED PRN PRN Reason: Keep Vein Open Last Admin: 09/12/20 13:50 Dose: 10 ml Documented by: Sodium Chloride (Sodium Chloride 0.9% 10 Ml Syringe) 10 ml FLUSH ONETIME PRN PRN Reason: IV FLUSH Last Admin: 09/12/20 14:37 Dose: 10 ml Documented by: Discontinued Medications Albuterol/Ipratropium (Albuterol/Ipratropium 3.0-0.5 Mg/3 Ml Neb Soln) 3 ml NEB ONETIME ONE Stop: 09/12/20 15:22 Last Admin: 09/12/20 15:49 Dose: 3 ml Documented by: Sodium Chloride (Normal Saline) 100 mls @ 75 mls/hr IV ASDIRECTED HERMILA Last Admin: 09/12/20 14:37 Dose: 75 mls/hr Documented by: Sodium Chloride (Normal Saline) 1,000 mls @ 500 mls/hr IV ONETIME ONE Stop: 09/12/20 16:27 Last Admin: 09/12/20 14:45 Dose: 500 mls/hr Documented by: Iopamidol (Iopamidol 755 Mg/Ml 100 Ml Bottle) 100 ml IVPUSH ONETIME ONE Stop: 09/12/20 14:28 Last Admin: 09/12/20 14:37 Dose: 100 ml Documented by: Methylprednisolone Sodium Succinate (Methylprednisolone Sodium Succinate 125 Mg/2 Ml Sdv) 125 mg IVPUSH ONETIME ONE Stop: 09/12/20 15:22 Last Admin: 09/12/20 18:30 Dose: Not Given Documented by: - Exam General: Alert, Cooperative, No Acute Distress Lungs: Decreased Breath Sounds, Rhonchi (Throughout all lung tenorio.), Wheezing (Expiratory wheezing throughout prolonged expiratory phase.) Cardiovascular: Regular Rate GI/Abdominal Exam: Normal Bowel Sounds, Soft, Non-Tender Extremities: Normal Inspection, No Pedal Edema Skin: Warm, Dry Psy/Mental Status: Normal Mood - Patient Data Lab Results Last 24 hrs: Laboratory Results - last 24 hr 09/12/20 09/12/20 09/12/20 Range/Units 13:35 13:35 13:35 WBC 8.14 (4.23-9.07) K/mm3 RBC 5.23 (4.63-6.08) M/mm3 Hgb 15.3 (13.7-17.5) gm/dl Hct 46.9 (40.1-51.0) % MCV 89.7 (79.0-92.2) fl MCH 29.3 (25.7-32.2) pg MCHC 32.6 (32.2-35.5) g/dl RDW Std Deviation 49.7 H (35.1-43.9) fL Plt Count 340 H (163-337) K/mm3 MPV 10.6 (9.4-12.3) fl Neutrophils % (Manual) 53 (40-60) % Band Neutrophils % 0 (0-10) % Lymphocytes % (Manual) 25 (20-40) % Atypical Lymphs % 0 % Monocytes % (Manual) 10 (2-10) % Eosinophils % (Manual) 12 H (0.8-7.0) % Basophils % (Manual) 0 L (0.2-1.2) Platelet Estimate Adequate RBC Morph Comment Normal PT 11.4 (9.7-12.0) SECONDS INR 1.07 APTT 24.1 (21.7-31.4) SECONDS D-Dimer, Quantitative (0.19-0.50) mg/L Puncture Site ABG pH (7.35-7.45) ABG pCO2 (35.0-45.0) mmHg ABG pO2 (80.0-100.0) mmHg ABG HCO3 (22.0-26.0) meq/L ABG O2 Saturation (96.0-97.0) % ABG Base Excess (-2-2.0) Hernán Test A-a Gradient mmHg O2 Delivery Device FiO2 (21.00-100.00) % Sodium (136-145) mEq/L Potassium (3.5-5.1) mEq/L Chloride (98-107) mEq/L Carbon Dioxide (21-32) mEq/L Anion Gap (5-15) BUN (7-18) mg/dL Creatinine (0.7-1.3) mg/dL Est Cr Clr Drug Dosing mL/min Estimated GFR (MDRD) (>60) mL/min BUN/Creatinine Ratio (14-18) Glucose (70-99) mg/dL Lactic Acid (0.4-2.0) mmol/L Calcium (8.5-10.1) mg/dL Magnesium (1.8-2.4) mg/dL Total Bilirubin (0.2-1.0) mg/dL AST (15-37) U/L ALT (16-63) U/L Alkaline Phosphatase (46-116) U/L Troponin I (0.00-0.056) ng/mL C-Reactive Protein <0.2 (<1.0) mg/dL NT-Pro-B Natriuret Pep (0-450) pg/mL Total Protein (6.4-8.2) g/dl Albumin (3.4-5.0) g/dl Globulin gm/dL Albumin/Globulin Ratio (1-2) Influenza Type A RNA (NEGATIVE) Influenza Type B RNA (NEGATIVE) SARS-CoV-2 RNA (MITRA) (NEGATIVE) 09/12/20 09/12/20 09/12/20 Range/Units 13:35 13:35 13:35 WBC (4.23-9.07) K/mm3 RBC (4.63-6.08) M/mm3 Hgb (13.7-17.5) gm/dl Hct (40.1-51.0) % MCV (79.0-92.2) fl MCH (25.7-32.2) pg MCHC (32.2-35.5) g/dl RDW Std Deviation (35.1-43.9) fL Plt Count (163-337) K/mm3 MPV (9.4-12.3) fl Neutrophils % (Manual) (40-60) % Band Neutrophils % (0-10) % Lymphocytes % (Manual) (20-40) % Atypical Lymphs % % Monocytes % (Manual) (2-10) % Eosinophils % (Manual) (0.8-7.0) % Basophils % (Manual) (0.2-1.2) Platelet Estimate RBC Morph Comment PT (9.7-12.0) SECONDS INR APTT (21.7-31.4) SECONDS D-Dimer, Quantitative 1.23 H (0.19-0.50) mg/L Puncture Site ABG pH (7.35-7.45) ABG pCO2 (35.0-45.0) mmHg ABG pO2 (80.0-100.0) mmHg ABG HCO3 (22.0-26.0) meq/L ABG O2 Saturation (96.0-97.0) % ABG Base Excess (-2-2.0) Hernán Test A-a Gradient mmHg O2 Delivery Device FiO2 (21.00-100.00) % Sodium 143 (136-145) mEq/L Potassium 3.7 (3.5-5.1) mEq/L Chloride 106 (98-107) mEq/L Carbon Dioxide 29 (21-32) mEq/L Anion Gap 11.7 (5-15) BUN 25 H (7-18) mg/dL Creatinine 0.9 (0.7-1.3) mg/dL Est Cr Clr Drug Dosing 48.24 mL/min Estimated GFR (MDRD) > 60 (>60) mL/min BUN/Creatinine Ratio 27.8 H (14-18) Glucose 186 H (70-99) mg/dL Lactic Acid (0.4-2.0) mmol/L Calcium 9.4 (8.5-10.1) mg/dL Magnesium 1.9 (1.8-2.4) mg/dL Total Bilirubin 1.2 H (0.2-1.0) mg/dL AST 26 (15-37) U/L ALT 47 (16-63) U/L Alkaline Phosphatase 117 H (46-116) U/L Troponin I < 0.017 (0.00-0.056) ng/mL C-Reactive Protein (<1.0) mg/dL NT-Pro-B Natriuret Pep 149 (0-450) pg/mL Total Protein 7.0 (6.4-8.2) g/dl Albumin 4.0 (3.4-5.0) g/dl Globulin 3.0 gm/dL Albumin/Globulin Ratio 1.3 (1-2) Influenza Type A RNA (NEGATIVE) Influenza Type B RNA (NEGATIVE) SARS-CoV-2 RNA ([facility]RA) (NEGATIVE) 09/12/20 09/12/20 09/12/20 Range/Units 13:54 14:17 16:27 WBC (4.23-9.07) K/mm3 RBC (4.63-6.08) M/mm3 Hgb (13.7-17.5) gm/dl Hct (40.1-51.0) % MCV (79.0-92.2) fl MCH (25.7-32.2) pg MCHC (32.2-35.5) g/dl RDW Std Deviation (35.1-43.9) fL Plt Count (163-337) K/mm3 MPV (9.4-12.3) fl Neutrophils % (Manual) (40-60) % Band Neutrophils % (0-10) % Lymphocytes % (Manual) (20-40) % Atypical Lymphs % % Monocytes % (Manual) (2-10) % Eosinophils % (Manual) (0.8-7.0) % Basophils % (Manual) (0.2-1.2) Platelet Estimate RBC Morph Comment PT (9.7-12.0) SECONDS INR APTT (21.7-31.4) SECONDS D-Dimer, Quantitative (0.19-0.50) mg/L Puncture Site Lt radial ABG pH 7.40 (7.35-7.45) ABG pCO2 41.3 (35.0-45.0) mmHg ABG pO2 49.0 L (80.0-100.0) mmHg ABG HCO3 25.2 (22.0-26.0) meq/L ABG O2 Saturation 86.5 L (96.0-97.0) % ABG Base Excess 0.8 (-2-2.0) Hernán Test Positive A-a Gradient 49 mmHg O2 Delivery Device Room air FiO2 21.00 (21.00-100.00) % Sodium (136-145) mEq/L Potassium (3.5-5.1) mEq/L Chloride (98-107) mEq/L Carbon Dioxide (21-32) mEq/L Anion Gap (5-15) BUN (7-18) mg/dL Creatinine (0.7-1.3) mg/dL Est Cr Clr Drug Dosing mL/min Estimated GFR (MDRD) (>60) mL/min BUN/Creatinine Ratio (14-18) Glucose (70-99) mg/dL Lactic Acid 2.7 H* (0.4-2.0) mmol/L Calcium (8.5-10.1) mg/dL Magnesium (1.8-2.4) mg/dL Total Bilirubin (0.2-1.0) mg/dL AST (15-37) U/L ALT (16-63) U/L Alkaline Phosphatase (46-116) U/L Troponin I (0.00-0.056) ng/mL C-Reactive Protein (<1.0) mg/dL NT-Pro-B Natriuret Pep (0-450) pg/mL Total Protein (6.4-8.2) g/dl Albumin (3.4-5.0) g/dl Globulin gm/dL Albumin/Globulin Ratio (1-2) Influenza Type A RNA Negative (NEGATIVE) Influenza Type B RNA Negative (NEGATIVE) SARS-CoV-2 RNA (MITRA) Negative (NEGATIVE) 09/12/20 Range/Units 16:59 WBC (4.23-9.07) K/mm3 RBC (4.63-6.08) M/mm3 Hgb (13.7-17.5) gm/dl Hct (40.1-51.0) % MCV (79.0-92.2) fl MCH (25.7-32.2) pg MCHC (32.2-35.5) g/dl RDW Std Deviation (35.1-43.9) fL Plt Count (163-337) K/mm3 MPV (9.4-12.3) fl Neutrophils % (Manual) (40-60) % Band Neutrophils % (0-10) % Lymphocytes % (Manual) (20-40) % Atypical Lymphs % % Monocytes % (Manual) (2-10) % Eosinophils % (Manual) (0.8-7.0) % Basophils % (Manual) (0.2-1.2) Platelet Estimate RBC Morph Comment PT (9.7-12.0) SECONDS INR APTT (21.7-31.4) SECONDS D-Dimer, Quantitative (0.19-0.50) mg/L Puncture Site ABG pH (7.35-7.45) ABG pCO2 (35.0-45.0) mmHg ABG pO2 (80.0-100.0) mmHg ABG HCO3 (22.0-26.0) meq/L ABG O2 Saturation (96.0-97.0) % ABG Base Excess (-2-2.0) Hernán Test A-a Gradient mmHg O2 Delivery Device FiO2 (21.00-100.00) % Sodium (136-145) mEq/L Potassium (3.5-5.1) mEq/L Chloride (98-107) mEq/L Carbon Dioxide (21-32) mEq/L Anion Gap (5-15) BUN (7-18) mg/dL Creatinine (0.7-1.3) mg/dL Est Cr Clr Drug Dosing mL/min Estimated GFR (MDRD) (>60) mL/min BUN/Creatinine Ratio (14-18) Glucose (70-99) mg/dL Lactic Acid 1.8 (0.4-2.0) mmol/L Calcium (8.5-10.1) mg/dL Magnesium (1.8-2.4) mg/dL Total Bilirubin (0.2-1.0) mg/dL AST (15-37) U/L ALT (16-63) U/L Alkaline Phosphatase (46-116) U/L Troponin I (0.00-0.056) ng/mL C-Reactive Protein (<1.0) mg/dL NT-Pro-B Natriuret Pep (0-450) pg/mL Total Protein (6.4-8.2) g/dl Albumin (3.4-5.0) g/dl Globulin gm/dL Albumin/Globulin Ratio (1-2) Influenza Type A RNA (NEGATIVE) Influenza Type B RNA (NEGATIVE) SARS-CoV-2 RNA ([facility]RA) (NEGATIVE) Result Diagrams: 09/12/20 13:35 09/12/20 13:35 Sepsis Event Note - Evaluation Sepsis Screening Result: No Definite Risk - Focused Exam Vital Signs: Vital Signs Temp Pulse Resp BP Pulse Ox Pulse Ox 09/13/20 06:02 95 09/13/20 05:37 97.9 F 65 20 126/84 97 09/13/20 01:34 91 L 09/12/20 23:48 97.5 F 75 24 H 122/91 H 91 L 09/12/20 21:50 97.7 F 80 24 H 123/68 91 L 09/12/20 21:18 93 L - Problem List & Annotations (1) COPD exacerbation SNOMED Code(s): 916025210 Code(s): J44.1 - CHRONIC OBSTRUCTIVE PULMONARY DISEASE W (ACUTE) EXACERBATION Status: Acute Current Visit: Yes - Problem List Review Problem List Initiated/Reviewed/Updated: Yes - My Orders Last 24 Hours: My Active Orders 09/12/20 15:48 Up With Assistance [RC] ASDIRECTED Acetaminophen [TylenoL] 650 mg PO Q4H PRN Albuterol/Ipratropium [DuoNeb 3.0-0.5 MG/3 ML] 3 ml NEB Q2H PRN Docusate Sodium [Colace] 100 mg PO BID PRN Ondansetron [Zofran ODT] 4 mg PO Q4H PRN Ondansetron [Zofran] 4 mg IV Q4H PRN Resuscitation Status Routine 09/12/20 15:49 Oxygen Therapy [RC] PRN VTE/DVT Education [RC] PER UNIT ROUTINE Vital Signs [RC] Q4HR 09/12/20 15:50 Pulse Oximetry [RC] CONTINUOUS 09/12/20 15:51 Antiembolic Devices [RC] PER UNIT ROUTINE Sequential Compression Device [OM.PC] Per Unit Routine 09/12/20 15:52 Respiratory Care Assess and Treatment [CONS] Routine 09/12/20 16:00 Heparin Sodium 5,000 units SUBCUT Q8H methylPREDNISolone Sod Succ [Solu-MEDROL] 40 mg IVPUSH Q8H 09/12/20 Dinner Regular Diet [DIET] 09/12/20 18:00 Albuterol/Ipratropium [DuoNeb 3.0-0.5 MG/3 ML] 3 ml NEB Q4HRRT 09/12/20 18:52 Patient Status [ADT] Routine 09/13/20 16:00 BASIC METABOLIC PANEL,BMP [CHEM] DAILY CBC WITH AUTO DIFF [HEME] DAILY 09/14/20 16:00 BASIC METABOLIC PANEL,BMP [CHEM] DAILY CBC WITH AUTO DIFF [HEME] DAILY 09/15/20 16:00 BASIC METABOLIC PANEL,BMP [CHEM] DAILY CBC WITH AUTO DIFF [HEME] DAILY - Plan Plan:: 84-year-old male with a history of known significant tobacco abuse over the past 75 years presented to the emergency department with progressive shortness of br eath over 1 month. Found to be in acute hypoxic respiratory failure secondary to acute COPD exacerbation. 1. Acute hypoxic respiratory failure secondary to acute COPD exacerbation. Admitted to hospitalist service to the general medical floor for ongoing treatment. Respiratory therapy consult to continue. Quiring 2 L of supplemental oxygen at current time. Continue scheduled and as needed duo nebs. Begin taper of prednisone starting at 40 mg daily x3 days. Incentive spirometry encouraged. Daily ambulation saturation trials with PT/OT. Smoking cessation education. Will require both short acting and long-acting maintenance therapies at time of discharge. Need teaching. Pulmonal oxygen as necessary with weaning as tolerated. 2. Tobacco abuse. Nicotine replacement necessary Tobacco cessation education. CODE STATUS: DNR but would want intubation for acute respiratory failure only. DVT prophylaxis with heparin.
[2020-09-13] MEDS: Heparin Sodium 5,000 Units/ML Vial SUBCUT SCH ×3 (08:10→23:04)
[2020-09-13] MEDS: methylPREDNISolone Sodium Succinate 40 MG/1 ML SDV IVPUSH SCH ×3 (08:11→23:04)
[2020-09-14] MEDS: Albuterol/Ipratropium 3.0-0.5 MG/3 ML Neb Soln NEB SCH ×3 (02:03→10:00)
[2020-09-14] MEDS: methylPREDNISolone Sodium Succinate 40 MG/1 ML SDV IVPUSH SCH (08:00)
[2020-09-14] MEDS: Heparin Sodium 5,000 Units/ML Vial SUBCUT SCH (08:03)
[2020-09-14] MEDS ORDERED: predniSONE 20 MG Tab PO ONE (08:18)
--- NOTE | 2020-09-14 08:36 | PCM.DCSUM1 ---
Discharge Summary - Hospital Course Free Text/Narrative:: 84-year-old male with a history of known significant tobacco abuse over the past 75 years presented to the emergency department with progressive shortness of breath over 1 month. Found to be in acute hypoxic respiratory failure secondary to acute COPD exacerbation. 1. Acute hypoxic respiratory failure secondary to acute COPD exacerbation. Admitted to hospitalist service to the general medical floor for ongoing treatment. Respiratory therapy consulted. Patient had required 2 L of supplemental oxygen continuously until the middle of the night on 09/13/2020. It was then discontinued while he was at rest. Was provided with scheduled and as needed duo nebs. Patient given corticosteroids with methylprednisolone 40 mg every 8 hours until being transitioned to prednisone taper at time of discharge. Incentive spirometry encouraged. Daily ambulation saturation trials with PT/OT were performed. Patient had mild desaturation to 87% upon walking 100 feet on the morning of discharge. Patient felt as if he was his typical self mid walk and after the test was completed. Smoking cessation education provided, as well as education regarding smoking while wearing oxygen. Patient transition to short acting albuterol, and Advair at time of discharge. Prescriptions provided. Of note, ambulation saturation trial with respiratory therapy noted to desaturation to 82% with exertion, the night before discharge. Patient was 91 to 94% on supplemental 2 L of oxygen while with exercise. 2. Tobacco abuse. Nicotine replacement as necessary was provided. Tobacco cessation education. CODE STATUS: DNR but would want intubation for acute respiratory failure only. DVT prophylaxis with heparin. HPI Initial Comments: Patient is an 84-year-old male with a past medical history only notable for significant tobacco abuse, who claims no other particular history and not seeing a primary care physician in many years, who presents to the [facility] emergency department with a chief complaint of shortness of breath. He is accompanied by his son Danine Vega. Patient states that he was in his usual state of health up until the past month or so. He has noted increasing/progressive shortness of breath which is exacerbated by any activity mild or strenuous. He occasionally will hear himself wheezing. This is only with exhalation. He denies any recent sick contacts. He did have an acute Covid pneumonitis earlier in 2020 without complication. Denies any sputum change. He does have a chronic cough. Sputum is white and occasional. Denies any chest pain, pleurisy or chest pressure. He has been a lifelong smoker for the past 74 years. He used to smoke 2 packs of cigarettes per day and claims that he quit 6 months ago. He presented to the emergency department for evaluation at the request of his son, because it is quite noticeable that he is struggling to breathe even at rest while watching the television. Patient was hypoxic upon presentation to the emergency department requiring supplemental oxygen. D-dimer was high. Chest x-ray negative for cute pathology other than chronic emphysematous changes. CT angiogram to rule out PE was, indeed, negative for pulmonary embolism. No other acute pathology noted. A pulmonary nodule was also seen. Patient was given corticosteroids and breathing treatments before being referred to the inpatient service. A 14 point review of systems was reviewed with the patient and only pertinent for the above information. CODE STATUS: DNR, but would want to be intubated for respiratory failure. - Related Data Allergies/Adverse Reactions: Allergies Allergy/AdvReac Type Severity Reaction Status Date / Time No Known Allergies Allergy Verified 09/12/20 13:35 Home Medications: Home Meds . [No Known Home Meds] 09/12/20 [History] Past Medical History Respiratory History: Reports: SOB - Infectious Disease History Infectious Disease History: Reports: Novel Coronavirus (05/02 or 06/02) - Past Surgical History Musculoskeletal Surgical History: Reports: Arthroscopic Knee, Other (See Below) Other Musculoskeletal Surgeries/Procedures:: Foot, knee and hip surgeries Social & Family History - Tobacco Use Tobacco Use Status *Q: Never Tobacco User - Caffeine Use Caffeine Use: Reports: None - Recreational Drug Use Recreational Drug Use: No H&P Review of Systems - Review of Systems: Review Of Systems: Comprehensive ROS is negative, except as noted in HPI. Exam - Exam Exam: See Below - Vital Signs Vital Signs: Last Vital Signs Temp 97.1 F 09/12/20 13:33 Pulse 85 09/12/20 13:33 Resp 24 H 09/12/20 13:33 BP 137/80 09/12/20 13:33 Pulse Ox 95 09/12/20 15:49 Weight: 120 lb 14.4 oz - Exam Quality Assessment: Supplemental Oxygen General: Alert, Oriented, Cooperative HEENT: Conjunctiva Clear, Nares Patent Neck: Supple Lungs: Rhonchi, Wheezing Cardiovascular: Regular Rate, Regular Rhythm, Normal S1, Normal S2 GI/Abdominal Exam: Normal Bowel Sounds, Soft, Non-Tender Extremities: Normal Inspection Skin: Warm, Dry, Intact Neuro Extensive - Mental Status: Normal Mood/Affect Neuro Extensive - Motor, Sensory, Reflexes: CN II-XII Intact Psychiatric: Normal Mood - Discharge Data Discharge Date: 09/14/20 Discharge Disposition: Home, Self-Care 01 Condition: Good - Referral to Home Health Primary Care Physician: PCP Not In Area - Discharge Diagnosis/Problem(s) (1) COPD exacerbation SNOMED Code(s): 516207499 ICD Code: J44.1 - CHRONIC OBSTRUCTIVE PULMONARY DISEASE W (ACUTE) EXACERBATION Status: Acute Current Visit: Yes - Patient Summary/Data Consults: Consultations 09/12/20 15:52 Respiratory Care Assess and Treatment [CONS] Routine - Patient Instructions Diet: Regular Diet as Tolerated Activity: As Tolerated Other/Special Instructions: Continue taking medications as instructed. Activity and diet are as tolerated. Supplemental oxygen with a flow rate of 2 L/min should be worn with activity. Follow-up with PCP within 1 to 2 weeks time. If you experience any signs or symptoms that warranted this admission please do not hesitate to call your primary care physician or present to an emergent care/emergent care setting for an immediate evaluation. - Discharge Plan *PRESCRIPTION DRUG MONITORING PROGRAM REVIEWED*: Not Applicable *COPY OF PRESCRIPTION DRUG MONITORING REPORT IN PATIENT AMANDA: Not Applicable Prescriptions/Med Rec: Fluticasone/Salmeterol [Advair 250-50] 1 puff INH BID #1 diskus predniSONE See Taper PO .TAPER #28 tab Albuterol [Ventolin HFA] 1 puff INH Q4H PRN #1 puff PRN Reason: Shortness Of Breath Home Medications: Home Meds Albuterol [Ventolin HFA] 1 puff INH Q4H PRN #1 puff 09/14/20 [Rx] Fluticasone/Salmeterol [Advair 250-50] 1 puff INH BID #1 diskus 09/14/20 [Rx] predniSONE See Taper PO .TAPER #28 tab 09/14/20 [Rx] Oxygen Therapy Mode: Nasal Cannula Oxygen Flow Rate (L/min): 2 Maintain SpO2% greater than: 88 Patient Handouts: Chronic Obstructive Pulmonary Disease, Steps to Quit Smoking Forms: ED Department Discharge Referrals: Angel Cotter [Other] (This is patients primary care provider) - Discharge Summary/Plan Comment DC Time >30 min.: Yes - General Info Date of Service: 09/14/20 Admission Dx/Problem (Free Text: Admission Diagnosis/Problem Admission Diagnosis/Problem COPD, Severe chronic obstructive pulmonary disease with acute exacerbation Subjective Update: No acute events overnight. Weaned off oxygen while at rest. No specific new nursing concerns. Patient states that he feels back to baseline and is wanting to go home. Denies any shortness of breath, productive cough, chest pain, pleurisy, chest pressure. No abdominal complaints. No difficulties with voiding. - Patient Data Vitals - Most Recent: Last Vital Signs Temp 97.3 F 09/14/20 07:56 Pulse 78 09/14/20 07:56 Resp 20 09/14/20 07:56 BP 114/87 09/14/20 07:56 Pulse Ox 89 L 09/14/20 07:56 Weight - Most Recent: 116 lb 12.8 oz I&O - Last 24 hours: Intake & Output 09/13/20 09/14/20 09/14/20 22:59 06:59 14:59 Intake Total 590 300 Balance 590 300 Lab Results - Last 24 hrs: Laboratory Results - last 24 hr 09/13/20 09/13/20 Range/Units 16:00 16:00 WBC 9.10 H (4.23-9.07) K/mm3 RBC 4.84 (4.63-6.08) M/mm3 Hgb 14.4 (13.7-17.5) gm/dl Hct 43.9 (40.1-51.0) % MCV 90.7 (79.0-92.2) fl MCH 29.8 (25.7-32.2) pg MCHC 32.8 (32.2-35.5) g/dl RDW Std Deviation 49.3 H (35.1-43.9) fL Plt Count 278 (163-337) K/mm3 MPV 10.3 (9.4-12.3) fl Neut % (Auto) 62.2 (34.0-67.9) % Lymph % (Auto) 20.9 L (21.8-53.1) % [place] % (Auto) 12.1 (5.3-12.2) % Eos % (Auto) 4.4 (0.8-7.0) Baso % (Auto) 0.2 (0.1-1.2) % Neut # (Auto) 5.66 H (1.78-5.38) K/mm3 Lymph # (Auto) 1.90 (1.32-3.57) K/mm3 [place] # (Auto) 1.10 H (0.30-0.82) K/mm3 Eos # (Auto) 0.40 (0.04-0.54) K/mm3 Baso # (Auto) 0.02 (0.01-0.08) K/mm3 Sodium 145 (136-145) mEq/L Potassium 4.0 (3.5-5.1) mEq/L Chloride 107 (98-107) mEq/L Carbon Dioxide 30 (21-32) mEq/L Anion Gap 12.0 (5-15) BUN 22 H (7-18) mg/dL Creatinine 0.7 (0.7-1.3) mg/dL Est Cr Clr Drug Dosing 62.64 mL/min Estimated GFR (MDRD) > 60 (>60) mL/min BUN/Creatinine Ratio 31.4 H (14-18) Glucose 142 H (70-99) mg/dL Calcium 9.3 (8.5-10.1) mg/dL Med Orders - Current: Current Medications Acetaminophen (Acetaminophen 325 Mg Tab) 650 mg PO Q4H PRN PRN Reason: Pain (Mild 1-3)/fever Albuterol/Ipratropium (Albuterol/Ipratropium 3.0-0.5 Mg/3 Ml Neb Soln) 3 ml NEB Q2H PRN PRN Reason: Shortness Of Breath/wheezing Albuterol/Ipratropium (Albuterol/Ipratropium 3.0-0.5 Mg/3 Ml Neb Soln) 3 ml NEB Q4HRRT [facility] Last Admin: 09/14/20 06:04 Dose: 3 ml Documented by: Docusate Sodium (Docusate Sodium 100 Mg Cap) 100 mg PO BID PRN PRN Reason: Constipation Heparin Sodium (Porcine) (Heparin Sodium 5,000 Units/Ml Vial) 5,000 units SUBCUT Q8H [facility] Last Admin: 09/14/20 08:03 Dose: 5,000 units Documented by: Ondansetron HCl (Ondansetron 4 Mg Tab.Dis) 4 mg PO Q4H PRN PRN Reason: nausea, able to take PO Ondansetron HCl (Ondansetron 4 Mg/2 Ml Sdv) 4 mg IV Q4H PRN PRN Reason: Nausea/Vomiting Sodium Chloride (Sodium Chloride 0.9% 10 Ml Syringe) 10 ml FLUSH ASDIRECTED PRN PRN Reason: Keep Vein Open Last Admin: 09/12/20 13:50 Dose: 10 ml Documented by: Discontinued Medications Albuterol/Ipratropium (Albuterol/Ipratropium 3.0-0.5 Mg/3 Ml Neb Soln) 3 ml NEB ONETIME ONE Stop: 09/12/20 15:22 Last Admin: 09/12/20 15:49 Dose: 3 ml Documented by: Sodium Chloride (Normal Saline) 100 mls @ 75 mls/hr IV ASDIRECTED HERMILA Last Admin: 09/12/20 14:37 Dose: 75 mls/hr Documented by: Sodium Chloride (Normal Saline) 1,000 mls @ 500 mls/hr IV ONETIME ONE Stop: 09/12/20 16:27 Last Admin: 09/12/20 14:45 Dose: 500 mls/hr Documented by: Iopamidol (Iopamidol 755 Mg/Ml 100 Ml Bottle) 100 ml IVPUSH ONETIME ONE Stop: 09/12/20 14:28 Last Admin: 09/12/20 14:37 Dose: 100 ml Documented by: Methylprednisolone Sodium Succinate (Methylprednisolone Sodium Succinate 125 Mg/2 Ml Sdv) 125 mg IVPUSH ONETIME ONE Stop: 09/12/20 15:22 Last Admin: 09/12/20 18:30 Dose: Not Given Documented by: Methylprednisolone Sodium Succinate (Methylprednisolone Sodium Succinate 40 Mg/1 Ml Sdv) 40 mg IVPUSH Q8H [facility] Last Admin: 09/14/20 08:00 Dose: 40 mg Documented by: Prednisone (Prednisone 20 Mg Tab) 40 mg PO ONETIME ONE Stop: 09/14/20 08:19 Sodium Chloride (Sodium Chloride 0.9% 10 Ml Syringe) 10 ml FLUSH ONETIME PRN PRN Reason: IV FLUSH Last Admin: 09/12/20 14:37 Dose: 10 ml Documented by: - Exam General: Reports: Alert Lungs: Reports: Decreased Breath Sounds, Rhonchi, Other (Prolonged expiratory phase.) Cardiovascular: Reports: Regular Rate, Regular Rhythm GI/Abdominal Exam: Normal Bowel Sounds, Soft, Non-Tender, No Distention Extremities: Normal Inspection, No Pedal Edema Skin: Reports: Warm, Dry
== END 2020-09-14 11:10 | disposition home or self-care (01) | DRG 189 ==
LOC: JD.ED 13:24 → JD.MS 15:49 → UNDOADMIN 15:49 → JD.MS 18:52 → UNDODISIN 09-14 11:10
PROVIDERS: ADMIT Hospitalist; ATTEND Hospitalist
DX: J96.01 Acute respiratory failure with hypoxia (principal); R09.02 Hypoxemia; J44.1 Chronic obstructive pulmonary disease with (acute) exacerbation; F17.210 Nicotine dependence, cigarettes, uncomplicated; Z66 Do not resuscitate; Z86.16 Personal history of COVID-19; Z98.890 Other specified postprocedural states; Z79.899 Other long term (current) drug therapy; Z20.822 Contact with and (suspected) exposure to COVID-19
CPT/HCPCS: 0240U; 36415; 36600; 71046; 71275; 80048; 80053; 82803; 83605; 83735; 83880; 84484; 85007; 85025; 85027; 85379; 85610; 85730; 86140; 93005; 94640; 94762; 93010; 99222; 99232; 99239; 99284; 99285-25; J1644; J2920; J7030; J7512; J7620-GY; Q9967